=== PATIENT | female | born 1975 ===

== ENCOUNTER 2024-04-24 17:49 | Emergency (ER) | payer SELFPAY ==
[2024-04-24] MEDS ORDERED: Ondansetron ODT 4 MG TAB ONE (19:52)
[2024-04-24] MEDS ORDERED: Acetaminophen 500 MG TAB ONE (19:52)
== END 2024-04-24 20:04 | disposition home or self-care (01) ==
LOC: ERS 17:49
DX: J11.1 Influenza due to unidentified influenza virus with other respiratory manifestations (principal)
CPT/HCPCS: 71045; 87428; Q0162